=== PATIENT | male | born 1985 | race Caucasian/White ===

== ENCOUNTER 2020-01-17 21:04 | Emergency (ER) | payer SELFPAY ==
[~2020-01-17] VITALS: Ht 170.2 cm; Wt 77.1 kg
[2020-01-17 21:11] VITALS: Ht 170.2 cm; Wt 77.1 kg
[2020-01-17 22:50] VITALS: BP 156/102
== END 2020-01-17 22:50 | disposition home or self-care (01) ==
LOC: ED 21:04
DX: S60.512A Abrasion of left hand, initial encounter (principal); S60.511A Abrasion of right hand, initial encounter; E11.9 Type 2 diabetes mellitus without complications; W18.49XA Other slipping, tripping and stumbling without falling, initial encounter; Y93.89 Activity, other specified; Y92.89 Other specified places as the place of occurrence of the external cause; Y99.8 Other external cause status
CPT/HCPCS: Q0092